=== PATIENT | male | born 1925 | race Caucasian/White ===

== ENCOUNTER 2016-12-15 15:08 | Inpatient (IN) | payer MEDICARE ==
[~2016-12-15 15:08] MED LIST: ISOVUE-370 76%-LOCM 1 ML ONE
[2016-12-15 16:24] LABS: Mode 2LNC; Modified Allen's Test POSITIVE; Oxyhemoglobin 95.2 % (94.0-97.0); Sodium 140 mmol/L (135-148); Vent NO
[2016-12-15 17:05] LABS: #Eosinphils 0.1 thou/uL (0.0-0.7); #Monocytes 0.7 thou/uL (0.11-0.59); #Neutrophils 4.4 thou/uL (1.40-6.50); %Basophils 0.7 % (0.0-1.0); %Lymphocytes 16.1 % (21.0-51.0); %Monocytes 11.9 % (0.0-10.0); Hematocrit 40.6 % (42.0-52.0); Red Blood Cell (RBC) Count 3.56 mill/uL (4.70-6.10); White Blood Cell (WBC) Count 6.2 thou/uL (4.8-10.8)
[2016-12-15 17:06] LABS: Prothrombin Time 22.1 SEC (12.0-14.7)
[2016-12-15 17:25] LABS: Lactic Acid - Sepsis 1.6 mmol/L (0.5-2.2)
[2016-12-15 17:26] LABS: ALT (SGPT) 19 U/L (8-55); AST (SGOT) 30 U/L (5-34); Alkaline Phosphatase 90 U/L (40-150); Anion Gap 16 mmol/L (10-20); BUN (Urea Nitrogen) 40 mg/dL (8.4-25.7); Bilirubin, Total 2.9 mg/dL (0.2-1.2); CK (CPK) 96 U/L (30-200); Calc. Creatinine Clearance 0 mL/min (70-130); Calcium 9.8 mg/dL (7.8-10.44); Carbon Dioxide 23 mmol/L (23-31); Chloride 106 mmol/L (98-107); Estimated GFR-MDRD 47; Globulin 3.2 g/dL (2.4-3.5); Lipase 78 U/L (8-78); Protein, Total 7.1 g/dL (5.8-8.1)
[2016-12-15 17:29] LABS: Troponin I 0.263 ng/mL (< 0.028)
[2016-12-15 18:47] LABS: Bilirubin Small (Negative); Blood, Urine Negative (Negative); Glucose, Urine (Dipstick) Negative (Negative); Ketone, Urine Negative (Negative); Nitrite Negative (Negative); Protein, Urine (Dipstick) 100 mg/dL (Neg-Trace)
[2016-12-15 18:53] LABS: Bacteria/HPF None Seen HPF (None Seen); Squamous Epithelial 0-3 HPF (0-3)
[2016-12-15 19:06] LABS: RBC/HPF 0-3 HPF (0-3)
[2016-12-15 19:07] LABS: Hyaline Casts/LPF 4-6 HYALINE CAST LPF (0-3 Hyaline)
--- NOTE | 2016-12-15 19:08 | RAD ---
SINGLE VIEW OF THE CHEST: 12/15/16 COMPARISON: 11/01/16 HISTORY: Syncope. FINDINGS: Single view of the chest shows an enlarged but stable cardiomediastinal silhouette. The pacemaker is unchanged in position. There is a small left pleural effusion. Increased interstitial markings are present. IMPRESSION: 1. Cardiomegaly. 2. Small left pleural effusion. POS: [facility]
[2016-12-15] MEDS ORDERED: Furosemide 40 MG/4 ML VIAL ONE (19:15)
--- NOTE | 2016-12-15 19:27 | CT ---
CT OF THE BRAIN WITHOUT CONTRAST: 12/15/16 COMPARISON: 11/25/16 HISTORY: Syncope. TECHNIQUE: Multiple contiguous axial images were obtained in a CT of the brain without contrast. FINDINGS: There is scattered hypodensities in the subcortical and periventricular white matter, likely seconda ry to small vessel ischemic disease. There is no evidence of hydrocephalus, intracranial hemorrhage or extra-axial fluid collection. The calvarium and overlying soft tissues are unremarkable. The visualized paranasal sinuses and mast oid air cells are well aerated. IMPRESSION: No evidence of acute intracranial abnormality. POS: [facility]
--- NOTE | 2016-12-15 19:50 | CT ---
CTA OF THE CHEST WITH CONTRAST: 12/15/16 COMPARISON: None. HISTORY: Syncope and chest pain. TECHNIQUE: Multiple contiguous axial images are obtained in a CTA of the chest with contrast per pulmonary embo lism protocol. 3D oblique MIP reformats and direct coronal reformats were performed. FINDINGS: The pulmonary arteries are well opacified without filling defects to suggest pulmonary emboli. The h eart is globally enlarged. There is a pacemaker with leads in the right atrium, right ventricle and coronary sinus. The patient is status post CABG. Atherosclerotic calcifications are seen in the aort a and coronary arteries. Contrast is seen extending down the inferior vena cava into the liver which suggests right heart dys function. There are small bilateral pleural effusions. Scarring versus atelectasis is seen in the li ngula. Increased peripheral interstitial lung markings are seen in both lower lobes. No suspicious p ulmonary nodule is identified. Emphysematous changes are seen in the lung apices. There is a large cyst measuring 5.5 cm in the right kidney. A small amount of ascites is seen. The o ther visualized subdiaphragmatic structures are unremarkable. Degenerative changes are seen in the s pine. There is bilateral gynecomastia. IMPRESSION: 1. No evidence of pulmonary thromboembolism. 2. Small bilateral pleural effusions. 3. Right renal cyst. POS: [facility]
[2016-12-15 20:31] LABS: Troponin I 0.242 ng/mL (< 0.028)
[2016-12-15] MEDS ORDERED: Ondansetron ODT 4 MG TAB SL PRN (21:28)
[2016-12-15] MEDS ORDERED: Ondansetron HCl/PF 4 MG/2 ML Vial IVP PRN (21:28)
[2016-12-15] MEDS ORDERED: Acetaminophen 325 MG TAB PO PRN (22:40)
[2016-12-15] MEDS ORDERED: Guaifenesin DM 100-10/5 ML UDCUP PO PRN (22:40)
[2016-12-15 23:41] LABS: Troponin I 0.262 ng/mL (< 0.028)
--- NOTE | 2016-12-16 04:44 | HP ---
REASON FOR ADMISSION: Acute CHF exacerbation, demand ischemia. HISTORY OF PRESENT ILLNESS: The patient gives history of having progressive swelling of lower extremities and abdomen from last 1 week. He came to a point where he was getting worried and hence came to emergency room. The patient states he lives in [facility]. He has got multiple friends and his daughter will help him out. He states he takes his medications regularly and is on salt free diet as well. He was recently discharged on the for similar complaints. No complaints of cough or expectoration. No complaints of fever. No complaints of chest pain or palpitations are present. The patient also gives history of having near syncopal episode while he was trying to get into bed and got concerned with that as well. 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 PERSONAL HISTORY: Does not abuse alcohol or drugs. No history of smoking. Lives at [facility]. FAMILY HISTORY: Brother has had history of [place] and in his 60s. Father of [place] in his 70s. CURRENT MEDICATIONS: The patient is on Eliquis 5 mg twice daily, Coreg 6.25 mg p.o. twice daily, lisinopril 5 mg p.o. twice daily, Pravachol 80 mg p.o. at bedtime. ALLERGIES: No known drug allergies. REVIEW OF SYSTEMS: The following complete review of systems was negative, unless otherwise mentioned in the HPI or below: Constitutional: Weight loss or gain, ability to conduct usual activities. Skin: Rash, itching. Eyes: Double vision, pain. ENT/Mouth: Nose bleeding, neck stiffness, pain, tenderness. Cardiovascular: Palpitations, dyspnea on exertion, orthopnea. Respiratory: Shortness of breath, wheezing, cough, hemoptysis, fever or night sweats. Gastrointestinal: Poor appetite, abdominal pain, heartburn, nausea, vomiting, constipation, or diarrhea. Genitourinary: Urgency, frequency, dysuria, nocturia. Musculoskeletal: Pain, swelling. Neurologic/Psychiatric: Anxiety, depression. Allergy/Immunologic: Skin rash, bleeding tendency. PHYSICAL EXAMINATION: GENERAL: The patient is an 89-year-old male who is currently not in any acute distress. VITAL SIGNS: Blood pressure 114/86, pulse 110 per minute, respiratory rate 20 per minute, temperature 97.9 degrees Fahrenheit, and saturating 92% on room air. NECK: Supple. There is elevated JVD. HEENT: Eyes: Extraocular muscles intact. Pupils reacting to light. Oral cavity: Mucous membranes are dry. No exudates or congestion. CARDIOVASCULAR SYSTEM: S1, S2 heard. Regular rhythm. RESPIRATORY SYSTEM: Air entry 1+ bilateral scattered rales plus in the infrascapular area. ABDOMEN: Soft, bowel sounds heard. No tenderness, rigidity or guarding. EXTREMITIES: There is 1+ peripheral edema, no calf tenderness. VASCULAR SYSTEM: Peripheral pulses 1+ bilateral. No ischemic ulcerations or gangrene. CENTRAL NERVOUS SYSTEM: No gross focal deficits seen. The patient moves all extremities. PSYCHIATRIC: The patient's mood is euthymic. No hallucinations or delusions. LABORATORY DATA: White count of 6.2, H and H 12 and 40, platelet count is 172, MCV is 114 with 70% neutrophils. PT/INR 22 and 1.9, PTT 38, BUN 40, creatinine 1.4. Serum bicarbonate 23, glucose 94, total bilirubin 2.9. Liver enzymes within normal limits. BNP is 1511. Troponin I is indeterminate at 0.26. Ammonia levels were 59. TSH 0.87. CT angio chest done shows no evidence of PE , but there are bilateral pleural effusions, which is small. CT brain showed no acute intracranial abnormality. EKG done shows sinus rhythm at 110 beats per minute. There are T inversions seen in almost all the leads. CLINICAL IMPRESSION AND PLAN: The patient will be admitted to telemetry for near syncope, acute on chronic congestive heart failure exacerbation with systolic dysfunction. He will be on Lasix 40 mg IV q.12 hourly. The patient has likely chronic kidney disease stage 3 and will be closely monitored for his renal function. We will continue his Eliquis, aspirin, a lower dose of Coreg at 3.125 mg twice daily and lisinopril 5 mg twice daily. We will obtain an echo with 2D Doppler for evaluation of ejection fraction. The patient has mild hepatomegaly on clinical exam and will be reevaluated once diuresis is done to see if it is related to passive congestion of liver. We will continue to closely monitor him on telemetry. Please note I have seen and examined patient on 12/15/2016. [facility]
[2016-12-16] MEDS: Furosemide 40 MG/4 ML VIAL SLOW IVP SCH ×2 (05:18→14:48)
[2016-12-16 05:44] LABS: #Eosinphils 0.1 thou/uL (0.0-0.7); #Lymphocytes 1.2 thou/uL (1.20-3.40); #Neutrophils 4.3 thou/uL (1.40-6.50); %Basophils 0.3 % (0.0-1.0); %Eosinophils 1.1 % (0.0-10.0); %Lymphocytes 18.5 % (21.0-51.0); %Monocytes 14.9 % (0.0-10.0); Hematocrit 37.2 % (42.0-52.0); Mean Platelet Volume 8.7 fL (7.4-10.4); Neutrophil 77 % (42-75); Red Blood Cell (RBC) Count 3.23 mill/uL (4.70-6.10); White Blood Cell (WBC) Count 6.6 thou/uL (4.8-10.8)
[2016-12-16 05:52] LABS: ALT (SGPT) 19 U/L (8-55); AST (SGOT) 30 U/L (5-34); Alkaline Phosphatase 84 U/L (40-150); Anion Gap 15 mmol/L (10-20); BUN (Urea Nitrogen) 42 mg/dL (8.4-25.7); Bilirubin, Total 2.4 mg/dL (0.2-1.2); Calc. Creatinine Clearance 46 mL/min (70-130); Calcium 9.4 mg/dL (7.8-10.44); Carbon Dioxide 23 mmol/L (23-31); Chloride 105 mmol/L (98-107); Estimated GFR-MDRD 48; Globulin 2.9 g/dL (2.4-3.5); Protein, Total 6.4 g/dL (5.8-8.1)
[2016-12-16] MEDS: Carvedilol 3.125 MG TAB PO SCH ×2 (08:14→16:50)
[2016-12-16] MEDS: Apixaban 5 MG TAB PO SCH ×2 (08:14→20:55)
[2016-12-16] MEDS: Famotidine 20 MG TAB PO SCH (08:15)
[2016-12-16] MEDS: Docusate 100 MG CAP PO SCH ×2 (08:15→20:55)
[2016-12-16] MEDS: Lisinopril 5 MG TAB PO SCH ×2 (08:15→20:56)
[2016-12-16] MEDS ORDERED: Carvedilol 25 MG TAB PO SCH (09:00)
[2016-12-16] MEDS ORDERED: Famotidine 20 MG TAB PO SCH (09:00)
--- NOTE | 2016-12-16 17:40 | PDOC.PN ---
- Subjective Encounter Start Date: 12/16/16 Encounter Start Time: 17:30 Subjective: f/u for CHF exacerbation and dyspnea. Receiving Lasix IV currently. -: Overall feeling less SOB. - Objective Resuscitation Status: Resuscitation Status FULL:Full Resuscitation MAR Reviewed: Yes Vital Signs & Weight: Vital Signs (12 hours) Temp Pulse Resp BP Pulse Ox 12/16/16 08:15 85 12/16/16 08:00 97.6 F 85 18 124/57 L 95 Weight Weight 199 lb I&O: 12/15/16 12/16/16 12/17/16 06:59 06:59 06:59 Intake Total 480 Output Total 200 Balance 280 Result Diagrams: 12/16/16 04:53 12/16/16 04:53 Additional Labs: Microbiology 12/15/16 16:53 Venous blood - Left Arm Blood Culture - Preliminary Specimen has been received and culture in progress. No Growth to date. 12/15/16 16:47 Venous blood - Left Arm Blood Culture - Preliminary Specimen has been received and culture in progress. No Growth to date. Laboratory Tests 11/01/16 11/24/16 11/25/16 16:12 11:02 12:42 Creatinine 1.59 H 1.52 H Troponin I B-Natriuretic Peptide 1497.5 H TSH 3rd Generation Prolactin 11/25/16 12/15/16 12/15/16 12:45 16:53 16:53 Creatinine 1.42 H Troponin I 0.263 H B-Natriuretic Peptide 1182.5 H TSH 3rd Generation Prolactin 12/15/16 12/15/16 12/15/16 16:53 16:53 16:53 Creatinine Troponin I B-Natriuretic Peptide 1511.9 H TSH 3rd Generation 0.8721 Prolactin 20.69 H 12/15/16 12/15/16 19:51 23:04 Creatinine Troponin I 0.242 H 0.262 H B-Natriuretic Peptide TSH 3rd Generation Prolactin Radiology Reviewed by me: Yes (2D echo pending) EKG Reviewed by me: Yes (Tele - V-paced in 80's) Phys Exam - Physical Examination Constitutional: NAD HEENT: PERRLA, oral pharynx no lesions Neck: no JVD, supple Respiratory: no wheezing, clear to auscultation bilateral Cardiovascular: RRR Gastrointestinal: soft, non-tender, no distention, positive bowel sounds Musculoskeletal: pulses present, edema present Neurological: normal sensation, moves all 4 limbs Psychiatric: A&O x 3 Skin: normal turgor, cap refill <2 seconds Dx/Plan (1) Syncope Code(s): R55 - SYNCOPE AND COLLAPSE Status: Acute Comment: Unclear etiology , likely cardiogenic and CHF exacerbation, 2D echo pending (2) Acute on chronic systolic (congestive) heart failure Code(s): I50.23 - ACUTE ON CHRONIC SYSTOLIC (CONGESTIVE) HEART FAILURE Status : Acute Comment: Await 2D echo for EF determination, continue Lasix 40mg IV q12h (3) CKD (chronic kidney disease) stage 3, GFR 30-59 ml/min Code(s): N18.3 - CHRONIC KIDNEY DISEASE, STAGE 3 (MODERATE) Status: Chronic Comment: Stable, continue to monitor renal function, repeat BMP in am (4) HTN (hypertension) Code(s): I10 - ESSENTIAL (PRIMARY) HYPERTENSION Status: Chronic Qualifiers: Hypertension type: essential hypertension Qualified Code(s): I10 - Essential (primary) hypertension Comment: Continue home regimen of Coreg and Lisinopril, serial monitoring - Plan plan discussed w/ family, out of bed/ambulate, DVT proph w/SCDs Stable overall -: Continue Lasix 40mg IV q12h -: Await 2D echo -: Continue ASA 81mg daily -: Continue Apixaban 5mg BID * AM lab: BMP
[2016-12-16] MEDS: Pravastatin Sodium 40 MG TAB PO SCH (20:55)
[2016-12-17] MEDS: Furosemide 40 MG/4 ML VIAL SLOW IVP SCH ×2 (06:03→13:00)
[2016-12-17 06:26] LABS: Anion Gap 12 mmol/L (10-20); BUN (Urea Nitrogen) 40 mg/dL (8.4-25.7); Calc. Creatinine Clearance 45 mL/min (70-130); Calcium 9.2 mg/dL (7.8-10.44); Carbon Dioxide 27 mmol/L (23-31); Chloride 105 mmol/L (98-107); Estimated GFR-MDRD 48
[2016-12-17] MEDS: Docusate 100 MG CAP PO SCH ×2 (08:53→20:06)
[2016-12-17] MEDS: Famotidine 20 MG TAB PO SCH (08:53)
[2016-12-17] MEDS: Carvedilol 3.125 MG TAB PO SCH ×2 (08:53→17:44)
[2016-12-17] MEDS: Lisinopril 5 MG TAB PO SCH ×2 (08:56→20:07)
[2016-12-17] MEDS: Apixaban 5 MG TAB PO SCH ×2 (10:41→20:06)
--- NOTE | 2016-12-17 15:16 | PDOC.PN ---
- Subjective Encounter Start Date: 12/17/16 Encounter Start Time: 14:55 Subjective: f/u for volume overload and syncope. Feels better overall today, no -: syncope or dizziness. Ambulated close to 500ft. without difficulty. - Objective Resuscitation Status: Resuscitation Status FULL:Full Resuscitation Vital Signs & Weight: Vital Signs (12 hours) Temp Pulse Pulse Pulse Resp BP BP 12/17/16 12:40 97.9 F 86 16 12/17/16 10:03 100 80 102/55 L 105/55 L 12/17/16 08:57 98.1 F 89 16 12/17/16 07:51 97.5 F L 88 18 12/17/16 04:00 97.5 F L 88 18 BP BP Pulse Ox Pulse Ox Pulse Ox 12/17/16 12:40 108/58 L 93 L 12/17/16 10:03 91 L 91 L 12/17/16 08:57 96/55 L 95 12/17/16 07:51 12/17/16 04:00 97/56 L 95 Weight Weight 197 lb 3.2 oz I&O: 12/16/16 12/17/16 12/18/16 06:59 06:59 06:59 Intake Total 480 480 Output Total 200 450 Balance 280 30 Result Diagrams: 12/16/16 04:53 12/17/16 04:48 Additional Labs: Microbiology 12/15/16 16:53 Venous blood - Left Arm Blood Culture - Preliminary Specimen has been received and culture in progress. No Growth to date. 12/15/16 16:53 Venous blood - Left Arm Blood Culture - Preliminary NO GROWTH AT 48 HOURS 12/15/16 16:47 Venous blood - Left Arm Blood Culture - Preliminary Specimen has been received and culture in progress. No Growth to date. 12/15/16 16:47 Venous blood - Left Arm Blood Culture - Preliminary NO GROWTH AT 48 HOURS Laboratory Tests 11/01/16 11/24/16 11/25/16 16:12 11:02 12:42 BUN Creatinine 1.59 H 1.52 H Troponin I B-Natriuretic Peptide 1497.5 H TSH 3rd Generation Prolactin 11/25/16 12/15/16 12/15/16 12:45 16:53 16:53 BUN Creatinine 1.42 H Troponin I 0.263 H B-Natriuretic Peptide 1182.5 H TSH 3rd Generation Prolactin 12/15/16 12/15/16 12/15/16 16:53 16:53 16:53 BUN Creatinine Troponin I B-Natriuretic Peptide 1511.9 H TSH 3rd Generation 0.8721 Prolactin 20.69 H 12/15/16 12/15/16 12/16/16 19:51 23:04 04:53 BUN 42 H Creatinine 1.40 H Troponin I 0.242 H 0.262 H B-Natriuretic Peptide TSH 3rd Generation Prolactin Radiology Reviewed by me: Yes (2D echo pending) EKG Reviewed by me: Yes (Tele - V-paced in 70's) Phys Exam - Physical Examination Constitutional: NAD HEENT: PERRLA, oral pharynx no lesions Neck: no JVD, supple Respiratory: no wheezing Cardiovascular: RRR Gastrointestinal: soft, non-tender, no distention, positive bowel sounds Musculoskeletal: pulses present, edema present Neurological: normal sensation, moves all 4 limbs Psychiatric: A&O x 3 Skin: normal turgor, cap refill <2 seconds Dx/Plan (1) Syncope Code(s): R55 - SYNCOPE AND COLLAPSE Status: Acute Comment: Unclear etiology , likely cardiogenic and CHF exacerbation, 2D echo pending (2) Acute on chronic systolic (congestive) heart failure Code(s): I50.23 - ACUTE ON CHRONIC SYSTOLIC (CONGESTIVE) HEART FAILURE Status : Acute Comment: Await 2D echo for EF determination, continue Lasix 40mg IV q12h (3) CKD (chronic kidney disease) stage 3, GFR 30-59 ml/min Code(s): N18.3 - CHRONIC KIDNEY DISEASE, STAGE 3 (MODERATE) Status: Chronic Comment: Stable, continue to monitor renal function, repeat BMP in am (4) HTN (hypertension) Code(s): I10 - ESSENTIAL (PRIMARY) HYPERTENSION Status: Chronic Qualifiers: Hypertension type: essential hypertension Qualified Code(s): I10 - Essential (primary) hypertension Comment: Continue home regimen of Coreg and Lisinopril, serial monitoring - Plan plan discussed w/ family, out of bed/ambulate, DVT proph w/SCDs Stable overall -: Continue Lasix 40mg IV q12h -: Await 2D Echo results -: Continue ASA 81mg daily -: Continue Eliquis 5mg BID * AM lab: BMP
[2016-12-17] MEDS: Pravastatin Sodium 40 MG TAB PO SCH (20:06)
[2016-12-18] MEDS: Furosemide 40 MG/4 ML VIAL SLOW IVP SCH ×2 (05:12→15:24)
[2016-12-18 05:55] LABS: Anion Gap 14 mmol/L (10-20); BUN (Urea Nitrogen) 38 mg/dL (8.4-25.7); Calc. Creatinine Clearance 55 mL/min (70-130); Carbon Dioxide 26 mmol/L (23-31); Chloride 106 mmol/L (98-107); Estimated GFR-MDRD 60
[2016-12-18] MEDS: Famotidine 20 MG TAB PO SCH (08:31)
[2016-12-18] MEDS: Carvedilol 3.125 MG TAB PO SCH ×2 (08:31→17:16)
[2016-12-18] MEDS: Docusate 100 MG CAP PO SCH ×2 (08:31→20:23)
[2016-12-18] MEDS: Lisinopril 5 MG TAB PO SCH ×2 (08:31→20:23)
[2016-12-18] MEDS: Apixaban 5 MG TAB PO SCH ×2 (08:31→20:23)
--- NOTE | 2016-12-18 11:16 | PDOC.PN ---
- Subjective Encounter Start Date: 12/18/16 Encounter Start Time: 10:20 Subjective: Feels better overall. Less SOB and decreased swelling legs. Slept well -: overnight. - Objective Resuscitation Status: Resuscitation Status FULL:Full Resuscitation MAR Reviewed: Yes Vital Signs & Weight: Vital Signs (12 hours) Temp Pulse Resp BP Pulse Ox 12/18/16 08:33 88 18 112/69 94 L 12/18/16 07:44 97.7 F 86 20 12/18/16 04:00 97.7 F 86 20 109/59 L 94 L 12/18/16 00:00 97.9 F 87 18 99/54 L 92 L Weight Weight 198 lb I&O: 12/17/16 12/18/16 12/19/16 06:59 06:59 06:59 Intake Total 480 1140 Output Total 450 2180 Balance 30 -1040 Result Diagrams: 12/16/16 04:53 12/18/16 04:49 Radiology Reviewed by me: Yes (2D Echo- EF 35%, severe TR, SHIVA) EKG Reviewed by me: Yes (Tele - V-paced) Phys Exam - Physical Examination Constitutional: NAD HEENT: PERRLA, oral pharynx no lesions Neck: no JVD, supple diminished in bases Cardiovascular: RRR Gastrointestinal: soft, non-tender, no distention, positive bowel sounds minimal LE edema Musculoskeletal: pulses present Neurological: moves all 4 limbs Psychiatric: A&O x 3 Skin: normal turgor, cap refill <2 seconds Dx/Plan (1) Syncope Code(s): R55 - SYNCOPE AND COLLAPSE Status: Acute Comment: Unclear etiology , likely cardiogenic and CHF exacerbation, no recurrence (2) Acute on chronic systolic (congestive) heart failure Code(s): I50.23 - ACUTE ON CHRONIC SYSTOLIC (CONGESTIVE) HEART FAILURE Status : Acute Comment: EF 35%, continue Lasix 40mg IV q12h (3) CKD (chronic kidney disease) stage 3, GFR 30-59 ml/min Code(s): N18.3 - CHRONIC KIDNEY DISEASE, STAGE 3 (MODERATE) Status: Chronic Comment: Stable, continue to monitor renal function, repeat BMP in am (4) HTN (hypertension) Code(s): I10 - ESSENTIAL (PRIMARY) HYPERTENSION Status: Chronic Qualifiers: Hypertension type: essential hypertension Qualified Code(s): I10 - Essential (primary) hypertension Comment: Continue home regimen of Coreg and Lisinopril, serial monitoring - Plan out of bed/ambulate, DVT proph w/SCDs Stable overall -: Continue Lasix 40mg IV q12h -: Continue Lisinopril 5mg BID -: OOB/ambulate -: Likely home in 24h * .
[2016-12-18] MEDS: Pravastatin Sodium 40 MG TAB PO SCH (20:23)
[2016-12-19] MEDS: Furosemide 40 MG/4 ML VIAL SLOW IVP SCH (05:43)
[2016-12-19] MEDS: Carvedilol 3.125 MG TAB PO SCH ×2 (08:50→16:57)
[2016-12-19] MEDS: Famotidine 20 MG TAB PO SCH (09:43)
[2016-12-19] MEDS: Apixaban 5 MG TAB PO SCH ×2 (09:43→20:36)
[2016-12-19] MEDS: Docusate 100 MG CAP PO SCH ×2 (09:45→20:36)
--- NOTE | 2016-12-19 11:12 | PDOC.PN ---
- Subjective Encounter Start Date: 12/19/16 Encounter Start Time: 11:00 Subjective: Feels about the same as yesterday. Still SOB with ambulation. No increase -: in swelling. No fever or chills. Appetite ok. - Objective Resuscitation Status: Resuscitation Status FULL:Full Resuscitation MAR Reviewed: Yes Vital Signs & Weight: Vital Signs (12 hours) Temp Pulse Resp BP BP Pulse Ox 12/19/16 08:34 97.7 F 89 18 118/60 94 L 12/19/16 04:00 97.6 F 81 20 108/63 96 12/19/16 00:00 97.5 F L 83 20 99/58 L 96 Weight Weight 197 lb I&O: 12/18/16 12/19/16 12/20/16 06:59 06:59 06:59 Intake Total 1140 1040 Output Total 2180 1450 Balance -1040 -410 Result Diagrams: 12/16/16 04:53 12/18/16 04:49 Radiology Reviewed by me: Yes (2D echo - EF 35%, severe TR, SHIVA, mod-severe MR) EKG Reviewed by me: Yes (Tele - V-paced in 80's) Phys Exam - Physical Examination Constitutional: NAD HEENT: PERRLA, oral pharynx no lesions Neck: no JVD, supple Respiratory: no wheezing, clear to auscultation bilateral Cardiovascular: RRR Gastrointestinal: soft, non-tender, no distention, positive bowel sounds mild peripheral edema Musculoskeletal: pulses present Neurological: normal sensation, moves all 4 limbs Psychiatric: A&O x 3 Skin: normal turgor, cap refill <2 seconds Dx/Plan (1) Syncope Code(s): R55 - SYNCOPE AND COLLAPSE Status: Acute Comment: Unclear etiology , likely cardiogenic and CHF exacerbation, no recurrence (2) Acute on chronic systolic (congestive) heart failure Code(s): I50.23 - ACUTE ON CHRONIC SYSTOLIC (CONGESTIVE) HEART FAILURE Status : Acute Comment: EF 35%, transition to Lasix 40mg po BID (3) CKD (chronic kidney disease) stage 3, GFR 30-59 ml/min Code(s): N18.3 - CHRONIC KIDNEY DISEASE, STAGE 3 (MODERATE) Status: Chronic Comment: Stable, continue to monitor renal function, repeat BMP in am (4) HTN (hypertension) Code(s): I10 - ESSENTIAL (PRIMARY) HYPERTENSION Status: Chronic Qualifiers: Hypertension type: essential hypertension Qualified Code(s): I10 - Essential (primary) hypertension Comment: Continue home regimen of Coreg and Lisinopril, serial monitoring - Plan social science analyst, out of bed/ambulate, DVT proph w/SCDs Stable currently -: Check stool guaiac x 1 today -: Change Lasix 40mg po BID -: OOB/ambulate -: Continue ASA, Coreg and Lisinopril * AM lab: H/H * Likely home 12/20/16
[2016-12-19] MEDS: Lisinopril 5 MG TAB PO SCH ×2 (14:34→20:36)
[2016-12-19] MEDS: Furosemide 40 MG TAB PO SCH (14:53)
[2016-12-19] MEDS: Pravastatin Sodium 40 MG TAB PO SCH (20:36)
[2016-12-20 07:30] VITALS: BMI 28.0
[2016-12-20] MEDS: Famotidine 20 MG TAB PO SCH (08:30)
[2016-12-20] MEDS: Furosemide 40 MG TAB PO SCH (08:31)
[2016-12-20] MEDS: Apixaban 5 MG TAB PO SCH (08:31)
[2016-12-20] MEDS: Carvedilol 3.125 MG TAB PO SCH (08:31)
[2016-12-20] MEDS: Docusate 100 MG CAP PO SCH (08:31)
[2016-12-20] MEDS: Lisinopril 5 MG TAB PO SCH (08:32)
[2016-12-20 11:40] VITALS: BP 120/71; TEMP 97.8
--- NOTE | 2016-12-20 12:11 | DIS ---
DATE OF ADMISSION: 12/15/2016 DATE OF DISCHARGE: 12/20/2016 DISCHARGE DIAGNOSES: 1. Acute on chronic systolic congestive heart failure exacerbation with ejection fraction of 30% to 35%. 2. Status post near syncope, multifactorial, resolved. 3. Chronic kidney disease stage 3, stable. 4. Hypertension, stable. 5. Ischemic cardiomyopathy with ejection fraction of 30% to 35%. 6. Chronic atrial fibrillation with current pacemaker on chronic anticoagulation with Eliquis. CONSULTATIONS: None. PERTINENT LAB AND X-RAY FINDINGS: Creatinine ranged between 1.15-1.42 with estimated glomerular daly tration rate ranging between 47-60. Troponin I ranged between 0.242-0.263. BNP 1512, previously no lynn 1183 on 11/25/2016. TSH 0.87. Prolactin level 20.7 and serum ammonia level 59. CBC showed a h emoglobin ranging between 11.4-12.9, MCV 115. Blood cultures x2 from 12/15/2014, showed no growth a t 48 hours. Stool Hemoccult positive x1 on 12/19/2016. Portable chest x-ray dated 12/15/2016, show ed cardiomegaly without acute infiltrate. CT of the brain without contrast dated 12/15/2016, showed no acute intracranial process. CT angiogram of the chest dated 12/15/2016, showed no evidence for acute pulmonary embolus. A 2D transthoracic echocardiogram dated 12/17/2016, showed ejection fracti on of 30% to 35%. Severe biatrial enlargement. Moderate to severe mitral valve regurgitation. Mod erate aortic valve calcification without stenosis. Severe tricuspid valve regurgitation. HOSPITAL COURSE: Patient was admitted to the telemetry unit after initially presenting with questio nable near syncopal episode and evidence of increased lower extremity edema and acute congestive hea rt failure exacerbation. The patient was placed on IV Lasix therapy and monitored clinically with o verall excellent diuresis during the hospital course. The patient underwent general evaluation incl uding CT imaging of the brain showing no acute intracranial process. Patient's overall comorbid sta tus and deconditioned state, likely contributing to presentation. The patient was noted with mild a cute kidney injury in the context of known chronic kidney disease stage 3, stabilizing with serial m onitoring and diuretic therapy. The patient underwent repeat 2D transthoracic echocardiogram showin g overall ejection fraction of 30% to 35% with a continuation of lisinopril 5 mg b.i.d. The patient was transitioned from IV Lasix to oral Lasix 40 mg twice daily and will continue indefinitely after discharge. The patient was noted with a guaiac positive stool x1 in the context of chronic Eliquis therapy. Current recommendations are to continue Protonix 40 mg daily, and hold Eliquis for approx imately 72 hours after discharge. The patient is to monitor stools for worsening or progressive suyapa dence of blood or discoloration and to report to his primary care provider if this occurs. Overall, patient remained clinically stable through the remainder of the hospital course and ready for disch arge 12/20/2016. DISCHARGE MEDICATIONS: 1. Eliquis 5 mg 1 tab p.o. b.i.d. Hold until 12/23/2016. 2. Enteric coated aspirin 81 mg 1 tab p.o. daily. 3. Coreg 3.125 mg p.o. b.i.d. 4. Lasix 40 mg 1 tab p.o. b.i.d. 5. Lisinopril 5 mg 1 tablet p.o. b.i.d. 6. Protonix 40 mg 1 tab p.o. daily. 7. Pravachol 80 mg p.o. at bedtime. FOLLOWUP: Patient will follow up with Dr. Samm Solorzano on 12/30/2016, at 10:15 a.m. Patient w ill follow up with Dr. Naseem Cruz within 7 days of discharge and to call his office for appointmen t time and date. CONDITION ON DISCHARGE: Stable. ACTIVITY: Ad linus. Rolling walker for ambulation. DIET: Heart healthy. CODE STATUS: Full. DISPOSITION: Home to [facility] on 12/20/2016. Total time preparing and coordinating discharge is 35 minutes.
== END 2016-12-20 13:53 | disposition home or self-care (01) | DRG 291 ==
LOC: ERS 15:08 → 2NO 21:21
PROVIDERS: ADMIT Internal Medicine; ATTEND Internal Medicine
DX: I13.0 Hypertensive heart and chronic kidney disease with heart failure and stage 1 through stage 4 chronic kidney disease, or unspecified chronic kidney disease (principal); I50.23 Acute on chronic systolic (congestive) heart failure; N17.9 Acute kidney failure, unspecified; I25.5 Ischemic cardiomyopathy; I48.2 Chronic atrial fibrillation; D64.9 Anemia, unspecified; I24.8 Other forms of acute ischemic heart disease; R55 Syncope and collapse; Z95.810 Presence of automatic (implantable) cardiac defibrillator; E78.5 Hyperlipidemia, unspecified; I25.10 Atherosclerotic heart disease of native coronary artery without angina pectoris; N18.3 Chronic kidney disease, stage 3 (moderate); Z79.01 Long term (current) use of anticoagulants; Z95.1 Presence of aortocoronary bypass graft
CPT/HCPCS: 36415; 70450; 71010; 71275; 80048; 80053; 81003; 81015; 82140; 82274; 82553; 82805; 83605; 83690; 83880; 84146; 84443; 84484; 85014; 85018; 85025; 85049; 85379; 85610; 85730; 87040; 93005; 93306; 93798; 94760; 96374; J1940